=== PATIENT | male | born 1965 | race African-American/Black ===

== ENCOUNTER 2022-07-07 07:03 | Day surgery (SDC) | payer OTHER ==
[2022-06-30 14:22] VITALS: BMI 25.7
[2022-07-07] MEDS ORDERED: PROPOFOL 120 ML ONE (07:11)
[2022-07-07] MEDS ORDERED: LIDOCAINE HCL/PF 2% SDV 5ML VIAL ONE (07:11)
[2022-07-07 08:54] VITALS: RESP 18; TEMP 97.2
[2022-07-07 09:43] VITALS: BP 110/68; PULSE 64
== END 2022-07-07 09:47 | disposition home or self-care (01) ==
LOC: FASU-ENDO 07:03
PROVIDERS: ATTEND Internal Medicine Gastroenterology
PROC: 0DB68ZX Excision of Stomach, Via Natural or Artificial Opening Endoscopic, Diagnostic (ICD-10-PCS; 2022-07-07)
PROC: 0DB98ZX Excision of Duodenum, Via Natural or Artificial Opening Endoscopic, Diagnostic (ICD-10-PCS; principal; 2022-07-07 08:16)
DX: Z12.11 Encounter for screening for malignant neoplasm of colon (principal); K29.50 Unspecified chronic gastritis without bleeding; K44.9 Diaphragmatic hernia without obstruction or gangrene; K20.80 Other esophagitis without bleeding; B96.81 Helicobacter pylori [H. pylori] as the cause of diseases classified elsewhere
CPT/HCPCS: 43239; G0121; 88305-TC; 88342-TC

== ENCOUNTER 2023-03-07 06:04 | Inpatient (IN) | payer OTHER ==
[2023-03-02 15:57] VITALS: BMI 26.6
[2023-03-07] MEDS ORDERED: CEFAZOLIN 2 GM in DEXTROSE 5%-WATER - 50 ML IVPB ONE (06:30)
[2023-03-07] MEDS ORDERED: VANCOMYCIN 1 GM in D5W (PRE-DOCKED) 1,000 MG/250 ML IVPB ONE ×2 (06:30→19:30)
[2023-03-07] MEDS ORDERED: BUPIVACAINE LIPOSOME/PF (EXPAREL) 266 MG/20 ML VIAL ONE (07:03)
[2023-03-07] MEDS ORDERED: ONDANSETRON 4 MG/2 ML VIAL ONE ×2 (07:03→10:07)
[2023-03-07] MEDS ORDERED: DEXAMETHASONE SOD PHOSPHATE 4 MG/1 ML VIAL ONE ×2 (07:03→10:07)
[2023-03-07] MEDS ORDERED: MIDAZOLAM HCL 2 MG/2 ML SINGLE DOSE VIAL ONE (07:03)
[2023-03-07] MEDS ORDERED: BUPIVACAINE HCL/PF 0.5% (5 MG/ML) 30 ML VIAL IJ ONE (07:03)
[2023-03-07] MEDS ORDERED: EPINEPHrine 1:1,000 1,000 MCG/ML ML ONE (07:06)
[2023-03-07] MEDS ORDERED: VANCOMYCIN 1,000 MG VIAL (RESTRICTED TO ID ONLY) ONE ×2 (07:06→07:58)
[2023-03-07] MEDS ORDERED: TRANEXAMIC ACID 1000 MG/10 ML VIAL IVPUSH ONE (07:30)
[2023-03-07] MEDS ORDERED: ROCURONIUM BROMIDE 50 MG/5 ML SYRINGE ONE (07:38)
[2023-03-07] MEDS ORDERED: PROPOFOL 20 ML ONE (07:38)
[2023-03-07] MEDS ORDERED: SUCCINYLCHOLINE CHLORIDE 200 MG/10 ML SYRINGE ONE (07:39)
[2023-03-07] MEDS ORDERED: ceFAZolin SODIUM 1 GM VIAL ONE (07:54)
[2023-03-07] MEDS ORDERED: SEVOFLURANE 250 ML BTL ONE (08:03)
[2023-03-07] MEDS ORDERED: EPINEPHrine/PF 1 MG/1 ML (1:1,000) AMPULE ONE (08:03)
[2023-03-07] MEDS ORDERED: ONDANSETRON 4 MG/2 ML VIAL IVPUSH PRN ×2 (11:23→11:27)
[2023-03-07] MEDS ORDERED: oxyCODONE HCL 5 MG TABLET PO PRN ×2 (11:23)
[2023-03-07] MEDS ORDERED: ACETAMINOPHEN 1000 MG/100 ML BAG IVPB ONE (11:23)
[2023-03-07] MEDS ORDERED: MAG HYDROX/AL HYDROX/SIMETH 30 ML UNIT-DOSE CUP PO PRN (11:27)
[2023-03-07] MEDS ORDERED: LACTATED RINGERS SOLUTION 1,000 ML IV SCH (11:30)
[2023-03-07] MEDS: LACTATED RINGERS SOLUTION 1,000 ML IV SCH ×2 (11:39→12:07)
[2023-03-07] MEDS ORDERED: BENZOCAINE/MENTH/CETYLPYRD CL 1 EACH LOZENGE MM ONE (11:59)
[2023-03-07] MEDS ORDERED: BENZOCAINE/MENTHOL 1 EACH LOZENGE MM ONE (12:00)
[2023-03-07 12:24] VITALS: RESP 18
[2023-03-07] MEDS: CEFAZOLIN SODIUM 2 GM in DEXTROSE 5%-WATER 100 ML IVPB SCH ×2 (15:14→22:51)
[2023-03-07] MEDS ORDERED: ceFAZolin 2 GRAM PREMIX BAG IVPB SCH (15:45)
[2023-03-07] MEDS: SENNOSIDES/DOCUSATE COMBO (SENNA PLUS) TABLET (UD) PO SCH (22:52)
[2023-03-07] MEDS: GABAPENTIN 300 MG CAPSULE PO SCH (22:55)
[2023-03-08] MEDS ORDERED: ASPIRIN 325 MG TABLET PO SCH (08:00)
[2023-03-08 08:07] LABS: CALCIUM 7.7 mg/dl (8.5-10); CREATININE 0.5 mg/dl (0.55-1.3)
[2023-03-08 09:11] LABS: HEMATOCRIT 28.8 % (35.4-49); HEMOGLOBIN 10.2 GM/dL (11.7-16.9); MCH 31.8 pg (25.7-33.7); MCHC 35.3 g/dl (32.0-35.9); MEAN CELL VOLUME 90.2 fl (80-96); MEAN PLT VOLUME 8.1 fl (7.5-11.1); PLATELET COUNT 190 10^3/uL (134-434); RBC 3.19 M/mm3 (4.00-5.60); RDW 13.1 % (11.9-15.9); WHITE BLOOD COUNT 8.4 K/mm3 (4.0-10.0)
[2023-03-08] MEDS: SENNOSIDES/DOCUSATE COMBO (SENNA PLUS) TABLET (UD) PO SCH (09:30)
[2023-03-08] MEDS: GABAPENTIN 300 MG CAPSULE PO SCH (09:30)
[2023-03-08] MEDS ORDERED: MULTIVITAMINS (DAILY MVI) TABLET (FP) PO SCH (10:00)
[2023-03-08] MEDS ORDERED: PANTOPRAZOLE 40 MG TABLET PO SCH (10:00)
[2023-03-08 13:09] VITALS: BP 107/81; PULSE 88; TEMP 98.8
== END 2023-03-08 13:06 | disposition home or self-care (01) | DRG 322 ==
LOC: FM/S 06:04
PROVIDERS: ADMIT Internal Medicine; ATTEND Orthopaedic Surgery
PROC: 0LQ10ZZ Repair Right Shoulder Tendon, Open Approach (ICD-10-PCS; 2023-03-07)
PROC: 0LS30ZZ Reposition Right Upper Arm Tendon, Open Approach (ICD-10-PCS; 2023-03-07)
PROC: 0RRJ0JZ Replacement of Right Shoulder Joint with Synthetic Substitute, Open Approach (ICD-10-PCS; principal; 2023-03-07 08:18)
DX: M19.011 Primary osteoarthritis, right shoulder (principal); M54.12 Radiculopathy, cervical region; M75.121 Complete rotator cuff tear or rupture of right shoulder, not specified as traumatic; M75.21 Bicipital tendinitis, right shoulder
CPT/HCPCS: 36415; 73030-TC-RT-FY; 80048; 85027; 88304-TC; 88305-TC; 88311-TC; 94760; 97116-GP; 97162-GP; C1776; C9803-CS; U0003; U0005

== ENCOUNTER 2024-05-21 08:40 | Day surgery (SDC) | payer OTHER ==
[2024-05-17 14:24] VITALS: BMI 25.7
[2024-05-21 08:57] VITALS: RESP 16
[2024-05-21 11:13] VITALS: PULSE 74; TEMP 97.3
[2024-05-21 12:07] VITALS: BP 105/61
== END 2024-05-21 12:05 | disposition home or self-care (01) ==
LOC: FASU-ENDO 08:40
PROVIDERS: ATTEND Internal Medicine Gastroenterology
PROC: 0D747ZZ Dilation of Esophagogastric Junction, Via Natural or Artificial Opening (ICD-10-PCS; 2024-05-21)
PROC: 0DB68ZX Excision of Stomach, Via Natural or Artificial Opening Endoscopic, Diagnostic (ICD-10-PCS; principal; 2024-05-21 10:53)
DX: K22.2 Esophageal obstruction (principal); K44.9 Diaphragmatic hernia without obstruction or gangrene; K29.70 Gastritis, unspecified, without bleeding; B96.81 Helicobacter pylori [H. pylori] as the cause of diseases classified elsewhere
CPT/HCPCS: 88305-TC; 88341-TC; 88342-TC